=== PATIENT | male | born 1970 | race Caucasian/White ===

== ENCOUNTER → 2017-11-13 | Day surgery (SDC) | payer OTHER ==
[~2017-11-13] MED LIST: IBUPROFEN 200200 M1 PO; LIPITOR 20 MG T20 M1 PO; PERCOCET 5-3251 EACH PO; TYLENOL EXTRA500 MG PO; WELLBUTRIN XL300 MG PO; ZOLOFT50 MG PO
--- NOTE | 2017-11-13 21:45 | OP ---
[address] [address] OPERATIVE REPORT Name: AMANDANIRANJANAMANDA Room: [facility]#: [id number] Admission: 11/13/17 Attend Phys: Ezequiel Holbrook II Discharge: Date of : 74 Report #: [id number] THIS REPORT FOR: //name// CC: NO MED Holbrook DATE OF SERVICE: 11/13/2017 PREOPERATIVE DIAGNOSIS: Left distal fibular fracture with displacement and spiral component. POSTOPERATIVE DIAGNOSIS: Left distal fibular fracture with displacement and spiral component. PROCEDURE: Open reduction internal fixation of left distal fibular fracture, displaced. SURGEON: Ezequiel Holbrook II, DO. ASSET ANALYST: WIL Butterfield. ANESTHESIA: Per operative record. ESTIMATED BLOOD LOSS: Minimal. ANTIBIOTICS: Per operative record. DRAINS: None. COMPLICATIONS: None. CONDITION: The patient is stable to recovery room. IMPLANTS USED: Saurav distal fibula plate with appropriate locking and nonlocking screws. OPERATIVE PROCEDURE: The patient preoperatively placed supine on the operating table and given appropriate anesthesia. The patient's back and lower extremity sterilely prepped and draped in a well-padded knee arthroscopic mejía. Surgery began by incision over the lateral aspect of the fibula. This carried down to subcutaneous tissues. Careful dissection was made of the periosteum down to the fracture site. This showed a displaced component with spiral component and of the fracture site. Utilizing irrigation, excess hematoma was removed from the intrafracture area and then utilizing reduction forceps, this fibula was reduced in anatomic fashion. The lateral plate was then applied over the fibula and held with locking and nonlocking screws in appropriate fashion. [address] [address] OPERATIVE REPORT Name: AMANDA GARCIA Room: [facility]#: [id number] Admission: 11/13/17 Attend Phys: Ezequiel Holbrook II Discharge: Date of : 74 Report #: [id number] was visualized with C-arm in both AP and lateral directions to be excellent reduction with excellent stability of the fracture with plate in place. A final irrigation was then performed. The subcuticular layer was then closed with 2-0 Vicryl. Skin was closed with 2-0 Vicryl and running Monocryl. Dermabond dressing and a posterior splint were applied. The patient transported to recovery room in stable condition. Counts were correct throughout the procedure. <ELECTRONICALLY SIGNED> By: Ezequiel Holbrook II, DO 11/13/17 2145 1225 1250Ezequiel Holbrook II, DO /nt
--- NOTE | 2017-11-14 14:50 | EKG ---
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
== END | disposition home or self-care (01) ==
LOC: M.SUR 07:59
DX: S82.62XA Displaced fracture of lateral malleolus of left fibula, initial encounter for closed fracture (principal); Z88.8 Allergy status to other drugs, medicaments and biological substances; Z79.899 Other long term (current) drug therapy; X58.XXXA Exposure to other specified factors, initial encounter; Y93.89 Activity, other specified; Y92.89 Other specified places as the place of occurrence of the external cause; Y99.8 Other external cause status